=== PATIENT | female | born 1975 | race Caucasian/White ===

== ENCOUNTER 2018-09-21 21:01 | Emergency (ER) | payer OTHER ==
[~2018-09-21] VITALS: Ht 160 cm; Wt 92.1 kg
[2018-09-21] MEDS ORDERED: SODIUM CHLORIDE 0.9% 1000ML 1,000 ML IV SCH (21:30)
[2018-09-21] MEDS ORDERED: CLINDAMYCIN PHOS 900MG/ 50ML 50 ML IV SCH (22:00)
--- NOTE | 2018-09-21 22:00 | NUR ---
CALLED [facility] TO INITIATE TRANSFER
--- NOTE | 2018-09-21 22:30 | NUR ---
CALLED TO CHECK ON STATUS OF TRANSFER - [facility] REQUESTED A 15 MINUTE EXTENSION
[2018-09-21] MEDS ORDERED: VANCOMYCIN 1GM/NS 250 ML 250 ML IV ONE (23:15)
--- NOTE | 2018-09-22 | NUR ---
PT TAWANAO'D - TRANSFERED TO OTHER HC FACILITY; UNABLE TO EDIT IN DISCHARGE SCREEN;
[2018-09-22 00:20] VITALS: BP 135/89
== END 2018-09-22 | disposition home or self-care (01) ==
LOC: FSED 21:01
DX: L03.114 Cellulitis of left upper limb (principal); L03.012 Cellulitis of left finger; W55.03XA Scratched by cat, initial encounter; Y92.008 Other place in unspecified non-institutional (private) residence as the place of occurrence of the external cause
CPT/HCPCS: 80053; 85025; 87040; 99284